=== PATIENT | male | born 1940 | race Caucasian/White ===

== ENCOUNTER 2023-11-27 14:51 | Emergency (ER) | payer MEDICARE, SELFPAY ==
[2023-11-27] VITALS (16 sets, daily range): BP systolic 140–162; BP diastolic 64–83; PULSE 54–86; TEMP 36.7; O2SAT 95–100; BMI 28.5
--- NOTE | 2023-11-27 15:10 | ECG_ITS ---
[facility] Test Date: 2023-11-27 Pat Name: [facility] Department: Room: - Gender: Male Digital [employer] Specialist: : 1940 Requested By: Order Number: [id number] Reading MD: JUAN LAL Measurements Intervals [place] Rate: 84 P: 49 DC: 200 QRS: 39 QRSD: 92 T: 62 QT: 378 QTc: 419 Interpretive Statements 1100 Sinus rhythm 1574 with frequent ventricular premature complexes 9140 abnormal rhythm ECG No previous ECG available for comparison Electronically Signed On 11-28-2023 5:39:06 EDT by JUAN LAL
--- NOTE | 2023-11-27 15:22 | CT_ITS ---
[address] [address] Patient Name: SHANTE LANE MRN: [id number] date: 1940 Sex: M Assigned Patient Location: ER Current Patient Location: ER Accession/Order Number: [id number] Exam Date: 11/27/2023 15:41 Report Date: 11/27/2023 16:44 At the request of: ANASTACIA VARGAS Procedure: CT pelvis wo con EXAM: CT pelvis wo con COMPARISON: None available. CLINICAL INDICATION: fall TECHNIQUE: Multiplanar CT images of the pelvis without contrast. Dose reduction techniques were achieved by using automated exposure control and/or adjustment of mA and/or kV according to patient size and/or use of iterative reconstruction technique. FINDINGS: No CT evidence of acute osseous abnormality. Moderate degenerative change right hip and mild degenerative change left hip. Degenerative grade 1 anterolisthesis of L4 on L5 and L5 on S1 due to severe lower lumbar facet arthropathy. No presacral hematoma. There appears to be a small left gluteal hematoma in the superficial fascial region. No acute intrapelvic abnormality. Fat-containing left inguinal hernia. Small fat-containing right ventral hernia just superior to the umbilicus with diastases of the rectus abdominis musculature. Prostatomegaly. Nonspecific mild bladder wall thickening which appears slightly focally prominent involving the left-anterior bladder, would be most effectively evaluated with direct visualization as appropriate. CT/CT pelvis wo con IMPRESSION: 1. No CT evidence of acute osseous abnormality. 2. Small left gluteal hematoma. 3. Prostatomegaly. Nonspecific mild bladder wall thickening which appears slightly focally prominent involving the left-anterior bladder, would be most effectively evaluated with direct visualization as appropriate. Electronically authenticated by: GERMÁN BUSTILLOS Date: 11/27/2023 16:44
[2023-11-27 15:23] LABS: Basophils Percent Auto 0.3 % (0.2-2.0); Eosinophils Absolute Auto 0.2 10^3/uL (0.0-0.7); Eosinophils Percent Auto 2.8 % (0.9-7.0); Immature Granulocytes Abs Auto 0.02 10^3/uL (0.00-0.03); Immature Granulocytes Pct Auto 0.3 % (0.0-0.5); Lymphocytes Absolute Auto 1.5 10^3/uL (1.2-3.8); Lymphocytes Percent Auto 24.4 % (20.5-60.0); Mean Corpuscular HGB Conc 33.3 g/dL (29.9-35.2); Mean Corpuscular Hemoglobin 30.3 pg (25.9-34.0); Mean Corpuscular Volume 90.9 fL (80.0-94.0); Mean Platelet Volume 8.7 fL (9.5-13.5); Monocytes Absolute Auto 0.5 10^3/uL (0.3-0.8); Monocytes Percent Auto 7.7 % (1.7-12.0); Neutrophils Absolute Auto 3.9 10^3/uL (1.4-6.5); Neutrophils Percent Auto 64.5 % (43.0-75.0); Platelet Count 247 10^3/uL (150-450); Red Blood Count 4.29 10^6/uL (4.70-6.10); Red Cell Distribution Width 12.9 % (11.0-15.0)
[2023-11-27 15:39] LABS: Alanine Aminotransferase 19 U/L (16-63); Albumin Globulin Ratio 1.2; Albumin Level 3.6 g/dL (3.4-5.0); Alkaline Phosphatase 62 U/L (46-116); Anion Gap 12.6; Aspartate Amino Transferase 15 U/L (15-37); BUN Creatinine Ratio 9.6; Bilirubin Total 0.8 mg/dL (0.2-1.0); Calcium 8.2 mg/dL (8.5-10.1); Carbon Dioxide 25.7 mmol/L (21.0-32.0); Chloride 97 mmol/L (98-107); Estimated GFR (African America 52 (>=60); Estimated GFR (Non-African Ame 43 (>=60); Globulin 2.9 g/dL; Glucose 132 mg/dL (74-106); Magnesium 1.8 mg/dL (1.8-2.4); Potassium 4.3 mmol/L (3.5-5.1); Sodium 131 mmol/L (136-145); Total Protein 6.5 g/dL (6.4-8.2)
--- NOTE | 2023-11-27 15:39 | ED_ITS ---
HPI HPI - Fall General Chief Complaint: Fall Stated Complaint: LOWER EXTREMITY INJURY/FALL Time Seen by Provider: 11/27/23 15:10 Source: patient Mode of arrival: walk-in Limitations: no limitations History of Present Illness HPI Narrative: Patient presenting to us with a fall at the main concern, apparently 3 2 days ago he had a fall when he was on a stepstool and rolled his right ankle while he is stepping down, he then fell down and just rolled, the patient mentioned that the next day he actually fell down from the bed on his left side and complaining of left hip pain, the patient still able to ambulate with no difficulty. Patient mentioned that today while he was interacting with his cats apparently he was turning around when his right ankle that he rolled 2 days ago and he fell on the floor sitting and hitting his right hip. The patient denies any loss of conscious at any time but he mentioned that he was out of balance while interacting with his cats Denying any chest pain at any time any dizziness Related Data Home Medications ?Medication ?Instructions ?Recorded ?Confirmed aspirin 81 mg tablet,delayed 81 mg PO DAILY 11/27/23 11/27/23 release atorvastatin 40 mg tablet 40 mg PO QDAY 11/27/23 11/27/23 losartan 50 mg tablet 50 mg PO QDAY 11/27/23 11/27/23 pantoprazole 40 mg tablet,delayed 40 mg PO Q12H 11/27/23 11/27/23 release Previous Rx's ?Medication ?Instructions ?Recorded acetaminophen 650 mg 650 mg PO Q8H PRN pain #20 tabs 11/27/23 tablet,extended release (Tylenol 8 Hour) prednisone 20 mg tablet 40 mg (2 x 20 mg) PO DAILY 5 days 11/27/23 #10 tabs Allergies Allergy/AdvReac Type Severity Reaction Status Date / Time Penicillins Allergy Hives Verified 11/27/23 15:06 Opioid HPI Opioid Management Most Recent Pain and Opioid Data: Last Pain Scale 4 11/27/23 17:18 Last MAR Pain Assessment 11/27/23 17:18 Review of Systems ROS Status of ROS 10 or more systems reviewed and unremark able except as noted in history and below Exam Narrative Exam Narrative: Nurses notes and vital signs reviewed and patient is not hypoxic. General: Well-appearing and in no apparent distress. Skin: Warm, dry, no pallor noted. No rash. Head: Normocephalic, atraumatic. Neck: Supple, non-tender. Eye: Pupils are equal, round and EOMI. No scleral icterus. Ears, Nose, Mouth, and Throat: TM are clear, no nasal mucosal hypertrophy. Oral mucosa is moist, no posterior oropharynx erythema, uvula is mid-line Cardiovascular: Regular Rate and Rhythm without murmur, gallop or rub. Respiratory: No accessory muscle use or respiratory distress. Lungs are clear to auscultation, no wheezing, rales or rhonchi Chest Wall: no tenderness Back: No midline thoracic or lumbar vertebral tenderness. No CVA tenderness Musculoskeletal: normal ROM, no calf or popliteal tenderness, there is a right ankle mild edema noted with no tenderness upon palpation of the medial lateral malleolus On the left hip the patient have a big bruise almost 10 x 15 cm on the left side GI: Abdomen is soft, non-distended. Normal bowel sounds. No masses appreciated. No tenderness to palpation. No rebound, guarding, or rigidity noted. Neurological: A&O x4. No cranial nerve dysfunction observed. No truncal ataxia. Moves all extremities. Sensation intact. Psychiatric: Cooperative and interactive. Normal mood and affect. Constitutional Vital Signs, click to edit/add: Last Vital Signs Temp 98.0 F 11/27/23 14:55 Pulse 69 11/27/23 17:00 Resp 15 11/27/23 17:00 BP 143/80 H 11/27/23 17:00 Pulse Ox 98 11/27/23 17:00 O2 Del Method Room Air 11/27/23 14:55 Course Vital Signs Vital signs: Vital Signs Temperature 98.0 F 11/27/23 14:55 Pulse Rate 54 L 11/27/23 14:55 Respiratory Rate 18 11/27/23 14:55 Blood Pressure 162/64 H 11/27/23 14:55 Pulse Oximetry 100 11/27/23 14:55 Oxygen Delivery Method Room Air 11/27/23 14:55 Temperature 98.0 F 11/27/23 14:55 Pulse Rate 69 11/27/23 17:00 Respiratory Rate 15 11/27/23 17:00 Blood Pressure 143/80 H 11/27/23 17:00 Pulse Oximetry 98 11/27/23 17:00 Oxygen Delivery Method Room Air 11/27/23 14:55 MDM - Fall MDM Narrative Medical decision making narrative: The patient EKG showing a sinus rhythm with a heart rate of [address] elevation or depression but there is multiple PVCs #415 - Emergency Medicine: Utilization of CT for Minor Blunt Head Trauma (Adult) [] Patient has one or more of the following conditions that are excluded from the measure (select all that apply): [] Patient has ventricular shunt [] Patient has brain tumor [] Patient is [] Patient has multi-system trauma ? [] Patient taking an antiplatelet medication (excluding aspirin) [] Head CT not ordered by emergency healthcare corporate account director [x] Head CT ordered for reasons other than trauma [] Patient is 18 or older, presenting with minor blunt head trauma. Head CT (including cosigned orders) was ordered by an emergency healthcare corporate account director for trauma because (select one or more): [SATISFIES MIPS PERFORMANCE] Reasons: [x] Patient is 65 or older [] Patient GCS < 15 [] Patient has focal neurologic deficit [] Patient has severe headache [] Patient is vomiting The patient CT head showed no acute pathology as well as CT cervical spine and CT of the pelvis shows only hematoma on the left side which is mostly secondary to the trauma X-ray of the patient ankle shows no acute pathology Right now the patient will be provided with Aircast will be discharged home with prednisone and Tylenol for pain control as he is high risk for any opiates at the moment because of his fall history The patient is to follow up with primary care physician in next 2-3 days or to return to the emergency department should any of the signs or symptoms worsen or new symptoms develop. The patient agrees with the following Diagnosis and Treatment plan and the patient will be discharged home. Lab Data Labs: Lab Results 11/27/23 Range/Units 15:10 WBC 6.0 (4.0-11.0) 10^3/uL RBC 4.29 L (4.70-6.10) 10^6/uL Hgb 13.0 L (14.0-18.0) g/dL Hct 39.0 L (42.0-54.0) % MCV 90.9 (80.0-94.0) fL MCH 30.3 (25.9-34.0) pg MCHC 33.3 (29.9-35.2) g/dL RDW 12.9 (11.0-15.0) % Plt Count 247 (150-450) 10^3/uL MPV 8.7 L (9.5-13.5) fL Neut % (Auto) 64.5 (43.0-75.0) % Lymph % (Auto) 24.4 (20.5-60.0) % [place] % (Auto) 7.7 (1.7-12.0) % Eos % (Auto) 2.8 (0.9-7.0) % Baso % (Auto) 0.3 (0.2-2.0) % Neut # (Auto) 3.9 (1.4-6.5) 10^3/uL Lymph # (Auto) 1.5 (1.2-3.8) 10^3/uL [place] # (Auto) 0.5 (0.3-0.8) 10^3/uL Eos # (Auto) 0.2 (0.0-0.7) 10^3/uL Baso # (Auto) 0.0 (0.0-0.1) 10^3/uL Abs Immat Gran (auto) 0.02 (0.00-0.03) 10^3/uL Imm/Tot Granulo (auto) 0.3 (0.0-0.5) % Sodium 131 L (136-145) mmol/L Potassium 4.3 (3.5-5.1) mmol/L Chloride 97 L (98-107) mmol/L Carbon Dioxide 25.7 (21.0-32.0) mmol/L Anion Gap 12.6 BUN 15.0 (7.0-18.0) mg/dL Creatinine 1.56 H (0.70-1.30) mg/dL Est GFR ( Amer) 52 L (>=60) Est GFR (Non-Af Amer) 43 L (>=60) BUN/Creatinine Ratio 9.6 Glucose 132 H (74-106) mg/dL Calcium 8.2 L (8.5-10.1) mg/dL Magnesium 1.8 (1.8-2.4) mg/dL Total Bilirubin 0.8 (0.2-1.0) mg/dL AST 15 (15-37) U/L ALT 19 (16-63) U/L Alkaline Phosphatase 62 (46-116) U/L Troponin I High Sens 6.0 (4.0-76.1) pg/mL Total Protein 6.5 (6.4-8.2) g/dL Albumin 3.6 (3.4-5.0) g/dL Globulin 2.9 g/dL Albumin/Globulin Ratio 1.2 Discharge Plan Discharge Stand Alone Forms: Portal Instructions Chief Complaint: Fall Clinical Impression: Fall Qualifiers: Encounter type: initial encounter Qualified Code(s): W19.XXXA - Unspecified fall, initial encounter Ankle sprain Qualifiers: Encounter type: initial encounter Involved ligament of ankle: unspecified ligament Laterality: right Qualified Code(s): S93.401A - Sprain of unspecified ligament of right ankle, initial encounter Contusion of pelvis Qualifiers: Encounter type: initial encounter Qualified Code(s): S30.0XXA - Contusion of lower back and pelvis, initial encounter Patient Disposition: Home, Self-Care Time of Disposition Decision: 17:14 Condition: Good Prescriptions / Home Meds: New prednisone 20 mg tablet 40 mg PO DAILY 5 Days Qty: 10 0RF acetaminophen [Tylenol 8 Hour] 650 mg tablet extended release 650 mg PO Q8H PRN (Reason: pain) Qty: 20 0RF No Action atorvastatin 40 mg tablet 40 mg PO QDAY pantoprazole 40 mg tablet,delayed release (DR/EC) 40 mg PO Q12H aspirin 81 mg tablet,delayed release (DR/EC) 81 mg PO DAILY losartan 50 mg tablet 50 mg PO QDAY Print Language: Irish Instructions: Ankle Sprain (ED) Referrals: Physician,Non-Staff, MD [Primary Care Provider] - 1 week Orestes Townsend DPM [Physician] - 1 week
--- NOTE | 2023-11-27 15:48 | XR_ITS ---
[address] [address] Patient Name: SHANTE LANE MRN: [id number] date: 1940 Sex: M Assigned Patient Location: ED.MAIN Current Patient Location: ER Accession/Order Number: [id number] Exam Date: 11/27/2023 15:41 Report Date: 11/27/2023 16:35 At the request of: ANASTACIA VARGAS Procedure: XR ankle RT min 3V EXAM: XR ankle RT min 3V HISTORY: pain COMPARISON: None. TECHNIQUE: 3 views of the right ankle. FINDINGS: Bones: No acute fracture or aggressive appearing bony lesion. Joints: Normal alignment. Small heel spur. Soft tissues: Unremarkable. XR/XR ankle RT min 3V IMPRESSION: Unremarkable examination. No evidence of fracture. Electronically authenticated by: JOSE DAVID BREEN Date: 11/27/2023 16:35
--- NOTE | 2023-11-27 15:56 | CT_ITS ---
The [address] [address] Patient Name: SHANTE LANE MRN: [id number] date: 1940 Sex: M Assigned Patient Location: ER Current Patient Location: ER Accession/Order Number: [id number] Exam Date: 11/27/2023 15:41 Report Date: 11/27/2023 16:19 At the request of: ANASTACIA VARGAS Procedure: CT head/brain wo con EXAM: CT head/brain wo con HISTORY: fall COMPARISON: None. TECHNIQUE: Axial CT scans through the head were obtained without IV contrast administration. Dose reduction techniques were achieved by using: automated exposure control and/or adjustment of mA and /or kV according to patient size and/or use of iterative reconstruction technique. FINDINGS: There is no evidence of acute intracranial hemorrhage or abnormal extra-axial fluid collection. No mass effect or midline shift is seen. There is no evidence of large acute territorial infarction. There is no hydrocephalus. Mildly enlarged ventricles and sulci, consistent with age appropriate mild cerebral atrophy. There is mild periventricular decreased white matter attenuation, likely represents mild chronic microvascular ischemia. To the limit of CT, the posterior fossa appears unremarkable. No definite acute fracture is identified. Soft tissues are unremarkable. The visualized orbits show no abnormality. The visualized paranasal sinuses show no air-fluid level. Mastoid air cells are clear. CT/CT head/brain wo con IMPRESSION: No CT evidence of acute intracranial abnormality. Electronically authenticated by: ROGELIO UNLU Date: 11/27/2023 16:19
--- NOTE | 2023-11-27 15:56 | CT_ITS ---
[address] [address] Patient Name: SHANTE LANE MRN: [id number] date: 1940 Sex: M Assigned Patient Location: ER Current Patient Location: ER Accession/Order Number: [id number] Exam Date: 11/27/2023 15:41 Report Date: 11/27/2023 16:24 At the request of: ANASTACIA VARGAS Procedure: CT cervical spine wo con EXAM: CT cervical spine wo con HISTORY: Fall. TECHNIQUE: Axial CT scans through the cervical spine were obtained without contrast administration. Sagittal and coronal reconstruction images were obtained. A trauma Dose reduction techniques were achieved by using: automated exposure control and/or adjustment of mA and /or kV according to patient size and/or the use of an iterative reconstruction technique. COMPARISON: None. FINDINGS: No acute fracture or posttraumatic malalignment is shown. Partially calcified degenerative pannus posterior aspect of the odontoid without central spinal stenosis is present. Decreased disc height and associated discovertebral complexes from C4 to C7 without central spinal stenosis. Moderate stenosis of the left C4-C5 and right C5-C6 neural foramina and mild to moderate stenosis of the right and left C6-C7 neural foramina secondary to decreased disc height and uncovertebral hypertrophy. Slight degenerative spondylolisthesis of C7 on T1. The prevertebral soft tissue space appears normal. Visualized intracranial contents appear normal. The visualized neck shows no adenopathy. Visualized lung apices are clear. CT/CT cervical spine wo con IMPRESSION: No acute fracture or posttraumatic malalignment. Discovertebral degenerative changes from C4 to C7 without central spinal stenosis. Moderate stenosis of the left C4-C5 and right C5-C6 neural foramina. Slight degenerative spondylolisthesis of C7 on T1. Electronically authenticated by: ULISES NAJERA Date: 11/27/2023 16:24
[2023-11-27] MEDS: PREDNISONE 20 MG TABLET 40 MG PO (17:18)
[2023-11-27] MEDS: ACETAMINOPHEN 325 MG TABLET 650 MG PO (17:18)
== END 2023-11-27 17:48 | disposition home or self-care (01) ==
PROVIDERS: Emergency Provider Emergency Medicine
DX: S30.0XXA Contusion of lower back and pelvis, initial encounter (principal); S93.401A Sprain of unspecified ligament of right ankle, initial encounter; W19.XXXA Unspecified fall, initial encounter
CPT/HCPCS: 36415; 70450; 72125; 72192; 73610; 80053; 83735; 84484; 85025; 93005; 99283; J7512